=== PATIENT | female | born 1980 | race Caucasian/White ===

== ENCOUNTER 2019-01-10 11:00 | Emergency (ER) | payer OTHER ==
--- NOTE | 2019-01-10 11:48 | EDM.PDOC ---
ED HPI GENERAL MEDICAL PROBLEM - General Chief Complaint: Skin Complaint Stated Complaint: LEFT HAND PAIN Time Seen by Provider: 01/10/19 11:25 Source of Information: Reports: Patient History Limitations: Reports: No Limitations - History of Present Illness INITIAL COMMENTS - FREE TEXT/NARRATIVE: 38-year-old female with left hand pain since she woke up this morning. 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 When she looked at her hand she noticed she had a very irregular pattern of brownish stain like markings on her hand. She tried to wash it off but it didn't work. She has no discoloration on the dorsal aspect of the hand, the right hand, or anywhere proximal to the wrist on the left side. The hand continues to feel stiff and sore. Onset: Unknown/Unsure (Symptoms developed overnight) Associated Symptoms: Reports: No Other Symptoms (She otherwise feels fine) Left Hand Pain Score (Numeric/FACES): 4 - Related Data Allergies Allergy/AdvReac Type Severity Reaction Status Date / Time morphine Allergy Cannot Verified 01/10/19 11:26 Remember Home Meds: Home Meds NK [No Known Home Meds] 01/10/19 [History] Past Medical History - Past Health History Medical/Surgical History: Denies Medical/Surgical History - Past Surgical History Female Surgical History: Reports: Hysterectomy Social & Family History - Tobacco Use Smoking Status *Q: Never Smoker - Caffeine Use Caffeine Use: Reports: Soda - Recreational Drug Use Recreational Drug Use: No ED ROS GENERAL - Review of Systems Review Of Systems: See Below Constitutional: Denies: Fever, Chills Respiratory: Denies: Shortness of Breath Cardiovascular: Denies: Chest Pain GI/Abdominal: Denies: Nausea, Vomiting Neurological: Denies: Paresthesia ED EXAM, SKIN/RASH Exam: See Below Exam Limited By: No Limitations General Appearance: Alert, No Apparent Distress Respiratory/Chest: No Respiratory Distress Extremities: Other (Exam is otherwise limited to the upper extremities. The hands appear symmetric in size, the right hand looks normal. Left hand has an irregular scattering of brown pigment like lesions mostly over the contact areas of the hand such as the thenar and hyperthenar areas of the palm and the palmar surface of the fingers. They're mildly tender to palpation but not warm) Course - Vital Signs Last Recorded V/S: Last Vital Signs Temp 97.9 F 01/10/19 11:27 Pulse 74 01/10/19 11:27 Resp 16 01/10/19 11:27 BP 152/84 H 01/10/19 11:27 Pulse Ox 96 01/10/19 11:27 - Re-Assessments/Exams Free Text/Narrative Re-Assessment/Exam: 01/10/19 11:46 This appears to be some type of a contact reaction of the skin to something that has touched her superficially. We'll try 60 mg of prednisone daily for 5 days and she can increase activity as tolerated and return if she develops blisters, fever, worsening rash or other concerns. Departure - Departure Time of Disposition: 12:09 Disposition: Home, Self-Care 01 Clinical Impression: Hand pain, left - Discharge Information Instructions: Pain Without a Known Cause Referrals: PCP,None [Primary Care Provider] - Forms: ED Department Discharge Care Plan Goals: 6 pills of prednisone with your first meal daily for the next 2-5 days. Increase activity as tolerated and return if worsening such as blistering, fevers, increased rash or swelling.
== END 2019-01-10 11:50 | disposition home or self-care (01) ==
LOC: JP.ED 11:00
DX: M79.642 Pain in left hand (principal); Z88.6 Allergy status to analgesic agent
CPT/HCPCS: 99283

== ENCOUNTER 2019-03-07 00:02 | Emergency (ER) | payer OTHER ==
[2019-03-07] MEDS ORDERED: HYDROmorphone 0.5 MG/0.5 ML Syringe IVPUSH ONE (00:34)
[2019-03-07] MEDS ORDERED: Ondansetron 4 MG/2 ML SDV IVPUSH ONE ×2 (00:34→03:19)
--- NOTE | 2019-03-07 00:39 | EDM.PDOC ---
ED HPI GENERAL MEDICAL PROBLEM - General Chief Complaint: Abdominal Pain Stated Complaint: SEVERE SIDE PAIN Time Seen by Provider: 03/07/19 00:35 Source of Information: Reports: Patient History Limitations: Reports: No Limitations - History of Present Illness INITIAL COMMENTS - FREE TEXT/NARRATIVE: pt arrived with severe left sided abdomanal pain. This radiates to her back. She did not vomit but she was nauseated. She states this started all of a sudden. She was at work and she states this bent her completely over. Onset: Today, Sudden Duration: Hour(s): Location: Reports: Abdomen, Other (pt has severe pain in the left lower abdoman. She states this radiates to her back. 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 Other Hematologic History: HSP - Past Surgical History Female Surgical History: Reports: Hysterectomy Social & Family History - Family History Family Medical History: Noncontributory - Tobacco Use Smoking Status *Q: Never Smoker - Caffeine Use Caffeine Use: Reports: Soda Caffeine Use Comment: one per day - Alcohol Use Days Per Week of Alcohol Use: 1 Number of Drinks Per Day: 1 Total Drinks Per Week: 1 - Recreational Drug Use Recreational Drug Use: No ED ROS GENERAL - Review of Systems Review Of Systems: See Below Constitutional: Reports: Weakness HEENT: Reports: No Symptoms Respiratory: Reports: No Symptoms Cardiovascular: Reports: No Symptoms Endocrine: Reports: No Symptoms GI/Abdominal: Reports: Abdominal Pain, Nausea : Reports: No Symptoms Musculoskeletal: Reports: No Symptoms Skin: Reports: No Symptoms Neurological: Reports: No Symptoms Psychiatric: Reports: No Symptoms ED EXAM, GI/ABD - Physical Exam Exam: See Below Text/Narrative:: pt arrived with pain in left abdoman radiating to the back. She has worked alot of hours this week and did not stay hydrated. Exam Limited By: No Limitations General Appearance: Alert, Anxious, Moderate Distress Ears: Normal TMs Nose: Normal Inspection Throat/Mouth: Normal Inspection Head: Atraumatic Neck: Normal Inspection Respiratory/Chest: No Respiratory Distress Cardiovascular: Regular Rate, Rhythm, Tachycardia GI/Abdominal Exam: Other (pt is tender in the left lower abdoman. She is not guarded. No masses are noted. ) (Female) Exam: Deferred Rectal (Female) Exam: Deferred Back Exam: Normal Inspection Extremities: Normal Inspection Neurological: Alert, Oriented, Normal Cognition Psychiatric: Normal Affect Course - Vital Signs Last Recorded V/S: Last Vital Signs Temp 36.8 C 03/07/19 00:21 Pulse 97 03/07/19 00:21 Resp 16 03/07/19 00:21 BP 162/98 H 03/07/19 00:21 Pulse Ox 97 03/07/19 00:21 - Orders/Labs/Meds Labs: Laboratory Tests 03/07/19 03/07/19 03/07/19 Range/Units 00:45 00:45 00:58 WBC 10.0 (4.5-11.0) K/uL RBC 4.87 (3.30-5.50) M/uL Hgb 13.7 (12.0-15.0) g/dL Hct 41.2 (36.0-48.0) % MCV 85 (80-98) fL MCH 28 (27-31) pg MCHC 33 (32-36) % Plt Count 153 (150-400) K/uL Neut % (Auto) 57 (36-66) % Lymph % (Auto) 30 (24-44) % [place] % (Auto) 6 (2-6) % Eos % (Auto) 6 H (2-4) % Baso % (Auto) 1 (0-1) % Sodium 139 L (140-148) mmol/L Potassium 4.0 (3.6-5.2) mmol/L Chloride 105 (100-108) mmol/L Carbon Dioxide 23 (21-32) mmol/L Anion Gap 15.0 H (5.0-14.0) mmol/L BUN 20 H (7-18) mg/dL Creatinine 0.8 (0.6-1.0) mg/dL Est Cr Clr Drug Dosing 108.66 mL/min Estimated GFR (MDRD) > 60 (>60) Glucose 117 H (74-106) mg/dL Calcium 8.9 (8.5-10.1) mg/dL Total Bilirubin 0.4 (0.2-1.0) mg/dL AST 22 (15-37) U/L ALT 22 (12-78) U/L Alkaline Phosphatase 79 (46-116) U/L C-Reactive Protein 1.93 H (0.0-0.3) mg/dL Total Protein 8.0 (6.4-8.2) g/dL Albumin 3.6 (3.4-5.0) g/dL Globulin 4.4 H (2.3-3.5) g/dL Albumin/Globulin Ratio 0.8 L (1.2-2.2) Urine Color Yellow (YELLOW) Urine Appearance Slightly cloudy A (CLEAR) Urine pH 5.5 (5.0-8.0) Ur Specific [place] 1.025 (1.008-1.030) Urine Protein 30 H (NEGATIVE) mg/dL Urine Glucose (UA) Negative (NEGATIVE) mg/dL Urine Ketones Negative (NEGATIVE) mg/dL Urine Occult Blood Trace-intact H (NEGATIVE) Urine Nitrite Positive H (NEGATIVE) Urine Bilirubin Negative (NEGATIVE) Urine Urobilinogen 0.2 (0.2-1.0) EU/dL Ur Leukocyte Esterase Trace H (NEGATIVE) Urine RBC 0-5 (0-5) Urine WBC 10-20 H (0-5) Ur Epithelial Cells Moderate Amorphous Sediment Not seen Urine Bacteria Many Urine Mucus Few Meds: Medications Discontinued Medications Generic Name Dose Route Start Last Admin Trade Name Freq PRN Reason Stop Dose Admin Hydromorphone HCl 0.5 mg 03/07/19 00:34 03/07/19 01:23 Dilaudid IVPUSH 03/07/19 00:35 0.5 mg ONETIME ONE Administration Sodium Chloride 1,000 mls @ 999 mls/hr 03/07/19 00:45 03/07/19 01:20 Normal Saline IV 999 mls/hr ASDIRECTED MALACHI Administration Ceftriaxone Sodium 1 gm/ 50 mls @ 100 mls/hr 03/07/19 01:19 03/07/19 02:09 Sodium Chloride IV 03/07/19 01:48 100 mls/hr ONETIME ONE Administration Sodium Chloride 1,000 mls @ 999 mls/hr 03/07/19 02:30 Normal Saline IV ASDIRECTED [facility] Ketorolac Tromethamine 30 mg 03/07/19 03:19 03/07/19 03:38 Toradol IVPUSH 03/07/19 03:20 30 mg ONETIME ONE Administration Ondansetron HCl 4 mg 03/07/19 00:34 03/07/19 01:20 Zofran IVPUSH 03/07/19 00:35 4 mg ONETIME ONE Administration Ondansetron HCl 4 mg 03/07/19 03:19 03/07/19 03:38 Zofran IVPUSH 03/07/19 03:20 4 mg ONETIME ONE Administration - Re-Assessments/Exams Free Text/Narrative Re-Assessment/Exam: 03/07/19 02:25 urine is very concentrated and looks infected. She has a normal wbc. She does not have a fever. She had a cat scan of the abdoman which was neg for acute findings. . She was given rocephen 1 gm iv. A urine culture was set up. She will go home on oral antibiotics. Departure - Departure Time of Disposition: 04:15 Disposition: Home, Self-Care 01 Condition: Fair Clinical Impression: Kidney infection, Dehydration - Discharge Information Instructions: Pyelonephritis, Adult Referrals: PCP,None [Primary Care Provider] - Forms: ED Department Discharge Care Plan Goals: push fluids, cipro 500mg twice per day, toradol 10mg every 6 hours as needed for pain, return if pain should get alot worse.
[2019-03-07] MEDS ORDERED: Sodium Chloride 0.9% 1,000 ML IV SCH ×2 (00:45→02:30)
[2019-03-07] MEDS ORDERED: cefTRIAXone 1 GM in Sodium Chloride 0.9% 50 ML IV ONE (01:19)
--- NOTE | 2019-03-07 02:15 | CRLCT ---
INDICATION: Left-sided l pain, UTI TECHNIQUE: CT abdomen and pelvis without contrast. COMPARISON: None FINDINGS: Lower chest: Unremarkable. Liver: Unremarkable. Spleen: Unremarkable. Pancreas: Unremarkable. Gallbladder and bile ducts: Unremarkable. Kidneys: Unremarkable. No kidney or ureteral stones and no hydronephrosis. Adrenal glands: Unremarkable. GI tract: Unremarkable. Appendix is normal. Vascular structures: Unremarkable. Lymph nodes: Unremarkable. Miscellaneous: Fat containing umbilical hernia. No free air or significant free fluid. Pelvic Organs: Unremarkable. Bones: Unremarkable for age. IMPRESSION: No definitive findings to explain the patient`s left-sided pain. No urinary tract stones or hydronephrosis. Dictated by Dain Marks MD @ 03/07/2019 2:12:50 AM Please note that all CT scans at this facility use dose modulation, iterative reconstruction, and/or weight-based dosing when appropriate to reduce radiation dose to as low as reasonably achievable. Dictated by: Dain Marks MD @ 03/07/2019 02:13:03 (Electronically Signed)
[2019-03-07] MEDS ORDERED: Ketorolac 30 MG/ML SDV IVPUSH ONE (03:19)
== END 2019-03-07 04:19 | disposition home or self-care (01) ==
LOC: JP.ED 00:02
DX: N15.9 Renal tubulo-interstitial disease, unspecified (principal); E86.0 Dehydration; Z88.5 Allergy status to narcotic agent; Z79.899 Other long term (current) drug therapy; J45.909 Unspecified asthma, uncomplicated
CPT/HCPCS: 36415; 74176; 80053; 81001; 85025; 86140; 87086; 96361; 96365; 96375; 96376; 99285; J0696; J1170; J1885; J2405; J7030; J7050; 87088; 87186

== ENCOUNTER 2019-06-06 23:04 | Emergency (ER) | payer OTHER ==
--- NOTE | 2019-06-07 00:31 | EDM.PDOC ---
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 Generally gets prednisone for this periodically and it goes away for awhile. Onset: Gradual Onset Date: 06/06/19 Duration: Hour(s):, Getting Worse Location: Reports: Generalized (hips, knees, hands hurt and rash L hip) Quality: Reports: Ache Severity: Moderate Improves with: Reports: Medication Worsens with: Reports: Other (? 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 (see below) (none) Generalized Pain Score (Numeric/FACES): 3 - Related Data Allergies Allergy/AdvReac Type Severity Reaction Status Date / Time hydromorphone [From Dilaudid] Allergy Respiratory Verified 06/06/19 23:33 Depression morphine Allergy Cannot Verified 06/06/19 23:33 Remember Home Meds: Home Meds Albuterol [Ventolin HFA] 1 puff IN ASDIRECTED 03/07/19 [History] Past Medical History - Past Health History Medical/Surgical History: Denies Medical/Surgical History Respiratory History: Reports: Asthma 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 , Endocrine/Metabolic History: Reports: Other (See Below) Other Endocrine/Metabolic History: HSP Other Hematologic History: HSP - Infectious Disease History Infectious Disease History: Reports: Chicken Pox - Past Surgical History Female Surgical History: Reports: Hysterectomy Social & Family History - Family History Family Medical History: Noncontributory - Tobacco Use Smoking Status *Q: Never Smoker Second Hand Smoke Exposure: No - Caffeine Use Caffeine Use: Reports: Soda Caffeine Use Comment: one per day - Recreational Drug Use Recreational Drug Use: No ED ROS GENERAL - Review of Systems Review Of Systems: See Below Constitutional: Reports: No Symptoms HEENT: Reports: No Symptoms Respiratory: Reports: No Symptoms Cardiovascular: Reports: No Symptoms GI/Abdominal: Reports: No Symptoms : Reports: No Symptoms Musculoskeletal: Reports: Other (joint pains) Skin: Reports: Rash (L hip) Neurological: Reports: No Symptoms ED EXAM, GENERAL - Physical Exam Exam: See Below Exam Limited By: No Limitations General Appearance: Alert, WD/WN, No Apparent Distress, Obese Eye Exam: Bilateral Eye: Normal Inspection Ears: Normal External Exam, Normal Canal, Hearing Grossly Normal Ear Exam: Bilateral Ear: Auricle Normal, Canal Normal Nose: Normal Inspection, No Blood Throat/Mouth: Normal Inspection, Normal Lips, Normal Voice, No Airway Compromise Head: Atraumatic, Normocephalic Respiratory/Chest: No Respiratory Distress Neurological: Alert, Oriented, CN II-XII Intact, Normal Cognition, No Motor/ Sensory Deficits Psychiatric: Normal Affect, Normal Mood Skin Exam: Warm, Dry, Intact, Normal Color, Rash (L hip area, purpuric). No: No Rash Course - Vital Signs Last Recorded V/S: Last Vital Signs Temp 35.5 C 06/06/19 23:40 Pulse 85 06/06/19 23:40 Resp 16 06/06/19 23:40 BP 130/99 H 06/06/19 23:40 Pulse Ox 99 06/06/19 23:40 Departure - Departure Time of Disposition: 00:30 Disposition: Home, Self-Care 01 Condition: Good Clinical Impression: Henoch Schonlein syndrome - Discharge Information *PRESCRIPTION DRUG MONITORING PROGRAM REVIEWED*: No *COPY OF PRESCRIPTION DRUG MONITORING REPORT IN PATIENT JYOTI: No Referrals: PCP,None [Primary Care Provider] - Additional Instructions: Use prednisone as directed. Recheck as needed. Sepsis Event Note - Evaluation Sepsis Screening Result: No Definite Risk - Focused Exam Vital Signs: Vital Signs Temp Pulse Resp BP Pulse Ox 06/06/19 23:40 35.5 C 85 16 130/99 H 99 Date Exam was Performed: 06/07/19 Time Exam was Performed: 00:26
== END 2019-06-07 00:40 | disposition home or self-care (01) ==
LOC: JP.ED 23:04
DX: D69.0 Allergic purpura (principal); J45.909 Unspecified asthma, uncomplicated; Z88.6 Allergy status to analgesic agent; Z88.5 Allergy status to narcotic agent; Z79.899 Other long term (current) drug therapy
CPT/HCPCS: 99283